=== PATIENT | female | born 1955 | race Two or more races ===

== ENCOUNTER 2017-07-23 08:59 | Emergency (ER) | payer OTHER ==
[~2017-07-23] VITALS: Ht 160 cm; Wt 117.9 kg
[2017-07-23 09:09] VITALS: BP 152/70
[2017-07-23] MEDS ORDERED: methylPREDNISolone SOD SUCC 125 MG/2 ML VL IM ONE (09:45)
[2017-07-23] MEDS ORDERED: ALBUTEROL SULF 2.5 MG/0.5ML(0.5%) NEB SOLN NEB ONE (09:45)
[2017-07-23] MEDS ORDERED: IPRATROPIUM BROM 0.5 MG/2.5ML INH SOL NEB ONE (09:45)
== END 2017-07-23 10:59 | disposition home or self-care (01) ==
LOC: ER 08:59
DX: J20.9 Acute bronchitis, unspecified (principal)
CPT/HCPCS: 71046; 94640; 96372; 99284; J2930